=== PATIENT | female | born 1995 ===

== ENCOUNTER 2022-06-17 15:25 | Outpatient (CLI) | payer MEDICAID, SELFPAY ==
[2022-06-17 17:46] LABS: Chlamydia DNA Amplified* NOT DETECTED (No Detected); GC DNA Amplified* NOT DETECTED (No Detected)
== END 2022-06-17 15:26 | disposition home or self-care (01) ==
PROVIDERS: Visit Provider Physician Assistant
DX: Z01.419 Encounter for gynecological examination (general) (routine) without abnormal findings (principal); N89.8 Other specified noninflammatory disorders of vagina
CPT/HCPCS: 80061; 87491; 87591

== ENCOUNTER 2023-05-30 11:30 | Outpatient (CLI) | payer MEDICAID, SELFPAY | END 2023-05-30 11:31 | disposition home or self-care (01) | LOC: NFLDREF 06-06 10:54 | PROVIDERS: Visit Provider Physician Assistant | DX: R10.2 Pelvic and perineal pain (principal) | CPT/HCPCS: 87086 ==

== ENCOUNTER 2024-06-21 08:54 | Emergency (ER) | payer MEDICAID, SELFPAY ==
[2024-06-21] VITALS (17 sets, daily range): BP systolic 112–129; BP diastolic 78–88; PULSE 79–103; RESP 18; TEMP 36.9; O2SAT 98–100; BMI 26.6
--- NOTE | 2024-06-21 09:56 | CRLHL7_ITS ---
For Patients: As a result of the Century Cures Act, medical imaging exams and procedure reports are released immediately into your electronic medical record. You may view this report before your referring provider. If you have questions, please contact your health care provider. INDICATION: Chest pain TECHNIQUE: Chest 1 view COMPARISON: None FINDINGS: Cardiovascular and mediastinum: Heart size and vasculature are normal in caliber and appearance. Lungs and pleural spaces: Lungs are clear. No sign of infiltrate or mass. No sign of pleural effusion. No pneumothorax. Bones and soft tissues: No significant findings. IMPRESSION: No acute findings. Dictated by Jasvir Ellison MD @ 06/21/2024 10:14:24 AM (Electronically Signed)
--- NOTE | 2024-06-21 09:56 | ED.CHESTPAIN ---
HPI - Chest Pain General Time Seen by Provider: 09:56 Date Seen: 06/21/24 Chief Complaint: Chest Pain Stated Complaint: chest pain/pressure Time Seen by Provider: 06/21/24 09:55 Source: patient and RN notes reviewed Mode of arrival: ambulatory Limitations: no limitations History of Present Illness HPI narrative: Patient is a 28-year-old female with longstanding history of food allergies who comes to the emergency room for evaluation of chest pain. Patient notes the onset of chest pain on Friday night June 18 into Friday morning June 19. She notes that in past she used to have anaphylaxis to her food allergies but recently as an adult it seems to be more chest pain. She cannot recall any specific food she may have had that caused this. She notes that she has also had some increased congestion over the past 3 weeks and has been coughing. And has been a little bit harder to breathe. She denies a fever with this and has not experienced any belly pain or nausea. She does note that 1 month ago she did see her primary in [place] because she needed a yearly renewal of her asthma medications. She has not been in any recent long car rides plane rides and has not had a history of DVT. She adamantly denies any possibility of . She has not had any rashes or pruritus. Related Data Home Medications ?Medication ?Instructions ?Recorded ?Confirmed levonorgestrel (Mirena) 1 device intrauterine ONCE 06/17/22 06/21/24 albuterol sulfate 90 mcg/actuation 2 puff inhalation Q6H PRN 11/07/23 06/21/24 aerosol inhaler hydroxyzine HCl 25 mg tablet 25 mg PO QHS PRN 11/07/23 06/21/24 epinephrine 0.3 mg/0.3 mL 0.3 ml IM 06/21/24 injection, auto-injector fluticasone propionate 110 1 puff inhalation BID 06/21/24 06/21/24 mcg/actuation HFA aerosol inhaler levocetirizine 5 mg tablet 5 mg PO DAILY 06/21/24 06/21/24 Previous Rx's ?Medication ?Instructions ?Recorded azithromycin 250 mg tablet See Rx Instructions PO .COMPLEX #6 06/21/24 (Zithromax Z-Jeovanny) tabs prednisone 20 mg tablet 20 mg PO DAILY #4 tabs 12/09/24 Allergies Allergy/AdvReac Type Severity Reaction Status Date / Time soy Allergy Severe Anaphylaxis Verified 06/21/24 09:19 doxycycline Allergy Unknown Rash Verified 06/21/24 09:18 Sulfa (Sulfonamide Allergy Unknown Unknown Verified 06/21/24 09:18 Antibiotics) Review of Systems Status of ROS Reports: 10 or more systems reviewed and unremarkable except as noted in History and below Const Denies: fever, chills or fatigue Eyes Denies: change in vision ENMT Denies: throat pain, neck pain, throat swelling or nasal congestion Cardio Reports: chest pain and shortness of breath with exertion; Denies: palpitations, edema, swelling of feet/ankles or lightheadedness Resp Reports: shortness of breath and cough GI Denies: abdominal pain, nausea or vomiting Denies: painful urination Musculo Denies: back pain or neck pain Integ/Breast Denies: rash or itching Endo Denies: fatigue Allergy/Immuno Denies: throat swelling PFSH PFSH Medical History Anxiety ?F41.9 - Anxiety disorder, unspecified (ICD-10) Depression ?F32.A - Depression, unspecified (ICD-10) Surgical History History of colposcopy with cervical biopsy ?Z98.890 - Other specified postprocedural states (ICD-10) Family History Grandmother Stroke Diabetes Family/Other Alcohol dependence 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 No regular exercise. Non-smoker. 1-2 drinks/week. No recreational drug use. No concerns for safety or abuse. Smoking Status: Never smoker Do you use any of these nicotine containing products: None How often do you have a drink containing alcohol: monthly or less How often do you have six or more drinks on one occasion: Never AUDIT-C Alcohol total score: 1 Non-prescribed substance use: denies use service: No Exam Narrative Exam Narrative: Alert and oriented. No acute distress. Heart with tachycardic rate but regular. No murmur rub is noted. Patient noted to have no relief of her discomfort well leaning forward but did have increased discomfort with lying flat. Patient noted to have point tenderness with palpation over the right sided costal sternal rib articulations. No evidence of crepitus. Lungs are clear bilaterally without wheezing. Abdomen soft nontender. Lower extremities with no edema. Calves are tender in him negative Homans sign. Oral cavity with moist mucous membranes. Neck is supple without lymphadenopathy. Const Vital Signs, click to edit/add: Vital Signs - 24 hr 06/21/24 09:07 06/21/24 09:39 06/21/24 09:45 Temperature 98.4 F Pulse Rate 88 95 Pulse Rate [Pulse Oximeter] 80 Respiratory Rate 18 Blood Pressure Blood Pressure [Right Upper Arm] 129/88 Pulse Oximetry 98 99 99 Oxygen Delivery Method Room Air 06/21/24 10:00 06/21/24 10:15 06/21/24 10:30 Temperature Pulse Rate 91 84 82 Pulse Rate [Pulse Oximeter] Respiratory Rate Blood Pressure Blood Pressure [Right Upper Arm] Pulse Oximetry 100 100 100 Oxygen Delivery Method 06/21/24 10:45 06/21/24 11:00 06/21/24 11:15 Temperature Pulse Rate 92 79 82 Pulse Rate [Pulse Oximeter] Respiratory Rate Blood Pressure Blood Pressure [Right Upper Arm] Pulse Oximetry 100 98 100 Oxygen Delivery Method 06/21/24 11:30 06/21/24 11:45 06/21/24 12:00 Temperature Pulse Rate 84 90 82 Pulse Rate [Pulse Oximeter] Respiratory Rate Blood Pressure Blood Pressure [Right Upper Arm] Pulse Oximetry 99 100 99 Oxygen Delivery Method 06/21/24 12:11 06/21/24 12:15 06/21/24 12:20 Temperature Pulse Rate 79 83 Pulse Rate [Pulse Oximeter] Respiratory Rate 18 Blood Pressure 112/78 Blood Pressure [Right Upper Arm] Pulse Oximetry 99 99 Oxygen Delivery Method Documenting provider has reviewed patient's vital signs: yes Course Course ED Course: Differential diagnosis includes but is not limited to pericarditis, chest wall pain, pneumonia, URI, acute coronary event, pleurisy. Will place an IV and draw labs to include CBC, comprehensive panel, CRP, sed rate, troponin, magnesium, D-dimer. Will obtain EKG chest x-ray and place patient on store clerk at this time. Plan on trial of Toradol IV if initial troponin is negative. Reevaluation(s) Reevaluation #1: Patient informed that her troponin is negative and that her labs are reassuring although I am still waiting on a D-dimer. Will do a trial of Toradol. Reevaluation #2: Nursing staff informed me that the patient wanted to leave AMA. Stated to me that she had been waiting 4 hours for an allergic reaction with her chest pain and nothing has happened. She does note that she took Benadryl last night and it did not change how she was feeling I tried to talk to her about my belief that this was not an allergic reaction but likely secondary to her ongoing chest congestion over 3-4 weeks. While her chest x-ray is clear she continues to describe yellowish sputum especially in the morning and a cough. I did not auscultate any pertusses type of cough cough and she does have all of her immunizations with the exception of her COVID shots. She has tested negative for COVID influenza and RSV today. I did agree to give her Benadryl as she patient appears to be convinced that this is allergic reaction. She has no other rash or mucosal membrane swelling or edema. She did agree to give me an opportunity to go back and review all of her laboratory values. I did discuss labs with the patient including white count which is normal, hemoglobin normal, electrolyte panel shows slightly low potassium of 3.5 but otherwise discussed with patient is normal. Her CRP is normal and her initial troponin is negative. Her D-dimer comes back normal as well. I have suggested to patient that we treat with Zithromax for a bronchitis as well as prednisone 20 mg for 4 days and she is in agreement with this. At this time I have canceled her 2nd troponin. I would like the 2nd troponin but she was going to sign out AMA and she is fairly adamant that she wants to be going. With the fact that she has had ongoing pain for greater than 24 hours, 1 troponin should be sufficient to detect any abnormality. Vital Signs Vital signs: Initial Vital Signs Temperature 98.4 F 06/21/24 09:07 Temperature Source Temporal Artery Scan 06/21/24 09:07 Pulse Rate 80 06/21/24 09:07 Respiratory Rate 18 06/21/24 09:07 Blood Pressure 129/88 06/21/24 09:07 Blood Pressure Mean 101 06/21/24 09:07 Blood Pressure Position Sitting 12/09/24 09:07 Pulse Oximetry 98 06/21/24 09:07 Oxygen Delivery Method Room Air 06/21/24 09:07 Vital Signs Temperature 98.4 F 06/21/24 09:07 Pulse Rate 80 06/21/24 09:07 Respiratory Rate 18 06/21/24 09:07 Blood Pressure 129/88 06/21/24 09:07 Pulse Oximetry 98 06/21/24 09:07 Oxygen Delivery Method Room Air 06/21/24 09:07 Temperature 98.4 F 06/21/24 09:07 Pulse Rate 83 06/21/24 12:15 Respiratory Rate 18 06/21/24 12:20 Blood Pressure 112/78 06/21/24 12:11 Pulse Oximetry 99 06/21/24 12:15 Oxygen Delivery Method Room Air 06/21/24 09:07 Medications Administered Medications: Discontinued Medications Generic Name Dose Route Start Last Admin Trade Name Jody PRN Reason Stop Dose Admin Diphenhydramine HCl 50 mg 06/21/24 12:59 06/21/24 13:21 Diphenhydramine 25 Mg Capsule PO 06/21/24 13:00 50 mg ONCE ONE Administration Ketorolac Tromethamine 15 mg 06/21/24 11:41 06/21/24 12:02 Ketorolac 15 Mg/Ml Inj IVP 06/21/24 11:42 15 mg ONCE ONE Administration MDM - Chest Pain MDM Narrative Medical decision making narrative: 1. Bronchitis-patient has had ongoing chest congestion and a cough for approximately 4 weeks. Will treat with Zithromax 500 mg today followed by 250 mg daily for 4 days. Also prednisone 20 mg daily for 4 days. This was sent to her pharmacy [facility] in [place]. Recommend continuing current inhalers as directed. 2. Atypical chest pain-initial concerns regarding pericarditis is patient did seem to have more discomfort when lying flat. However EKG is reassuring, D-dimer and sed rate are normal. Reassurance that this does not appear to represent an acute coronary syndrome, PE or pneumonia. I did discuss with patient elevated heart rate she states that she is normally elevated. Her O2 saturations have been normal during her entire stay. She no lower extremity symptoms or risk factors for development of PE such as recent extended plate rides or past history of PE or DVT. 3. History of food allergies-Benadryl is given in the ED per patient request. No evidence to suggest anaphylaxis. 4. Disposition-well in initially patient was leaving AMA I was able to talk to patient and discuss laboratory findings, my concerns and she was receptive to suggestions. I have asked her to return for worsening symptoms and as needed. Medical Records Data Attestation: I reviewed the patient's medical records. Lab Data Attestation: I reviewed the patient's lab results. Labs: Lab Results 06/21/24 06/21/24 06/21/24 Range/Units 10:24 10:35 10:50 WBC 6.24 (4.50-11.00) K/uL RBC 4.70 (4.00-5.20) m/uL Hgb 13.4 (12.0-16.0) gm/dL Hct 40.0 (33.0-51.0) % MCV 85 (80-100) fL MCH 29 (26-34) pg MCHC 34 (32-36) gm/dL RDW Coeff of Katiuska 12.5 (11.5-15.5) % Plt Count 241 (140-440) K/uL Neut % (Auto) 56.4 (42.0-72.0) % Lymph % (Auto) 29.0 (20-44) % Mchenry % (Auto) 9.8 (0.0-11.0) % Eos % (Auto) 4.2 (0.0-7.0) % Baso % (Auto) 0.6 (0.0-3.0) % Neut # (Auto) 3.52 (1.7-7.0) K/uL Lymph # (Auto) 1.81 (0.90-2.90) K/uL Mchenry # (Auto) 0.60 (0.00-0.90) K/UL Eos # (Auto) 0.26 (0.00-0.50) K/uL Baso # (Auto) 0.04 (0.00-0.30) K/uL Abs Immat Gran (auto) 0.00 (0.00-0.30) K/uL Imm/Tot Granulo (auto) 0.0 % ESR 7 (2-20) mm/hr D-Dimer Quant (PE/DVT) 0.44 (0.00-0.50) ug/ml Sodium 138 (135-149) mmol/L Potassium 3.5 L (3.6-5.1) mmol/L Chloride 106 (96-114) mmol/L Carbon Dioxide 21 (20-32) mmol/L Anion Gap 11 (7-15) mEq/L BUN 12 (5-24) mg/dL Creatinine 0.7 (0.5-1.5) mg/dL Estimated Creat Clear 122.81 Estimated GFR 119 ml/min Glucose 112 (60-115) mg/dL Calcium 9.6 (8.4-10.6) mg/dL Magnesium 1.9 (1.5-2.6) mg/dL Total Bilirubin 0.5 (0.1-1.5) mg/dL AST 19 (12-35) U/L ALT 18 (4-35) U/L Alkaline Phosphatase 76 (40-150) U/L Troponin I < 0.01 L (0.01-0.04) ng/mL C-Reactive Protein < 0.5 L (0.5-1.0) mg/dL Total Protein 8.0 (6.0-8.3) g/dL Albumin 4.4 (3.3-5.0) g/dL SARS-CoV-2 (PCR) Negative SARS-CoV-2 (Negative) Influenza Type A (PCR) Negative PCR FLU A (Negative) Influenza Type B (PCR) Negative PCR FLU B (Negative) RSV (PCR) Negative PCR RSV (Negative) Lab Acknowledgement Test Added 06/21/24 Range/Units 11:50 WBC (4.50-11.00) K/uL RBC (4.00-5.20) m/uL Hgb (12.0-16.0) gm/dL Hct (33.0-51.0) % MCV (80-100) fL MCH (26-34) pg MCHC (32-36) gm/dL RDW Coeff of Katiuska (11.5-15.5) % Plt Count (140-440) K/uL Neut % (Auto) (42.0-72.0) % Lymph % (Auto) (20-44) % Mchenry % (Auto) (0.0-11.0) % Eos % (Auto) (0.0-7.0) % Baso % (Auto) (0.0-3.0) % Neut # (Auto) (1.7-7.0) K/uL Lymph # (Auto) (0.90-2.90) K/uL Mchenry # (Auto) (0.00-0.90) K/UL Eos # (Auto) (0.00-0.50) K/uL Baso # (Auto) (0.00-0.30) K/uL Abs Immat Gran (auto) (0.00-0.30) K/uL Imm/Tot Granulo (auto) % ESR (2-20) mm/hr D-Dimer Quant (PE/DVT) (0.00-0.50) ug/ml Sodium (135-149) mmol/L Potassium (3.6-5.1) mmol/L Chloride (96-114) mmol/L Carbon Dioxide (20-32) mmol/L Anion Gap (7-15) mEq/L BUN (5-24) mg/dL Creatinine (0.5-1.5) mg/dL Estimated Creat Clear Estimated GFR ml/min Glucose (60-115) mg/dL Calcium (8.4-10.6) mg/dL Magnesium (1.5-2.6) mg/dL Total Bilirubin (0.1-1.5) mg/dL AST (12-35) U/L ALT (4-35) U/L Alkaline Phosphatase (40-150) U/L Troponin I (0.01-0.04) ng/mL C-Reactive Protein (0.5-1.0) mg/dL Total Protein (6.0-8.3) g/dL Albumin (3.3-5.0) g/dL SARS-CoV-2 (PCR) (Negative) Influenza Type A (PCR) (Negative) Influenza Type B (PCR) (Negative) RSV (PCR) (Negative) Lab Acknowledgement Test Added Imaging Data Chest x-ray: Attestation: I have reviewed the pertinent imaging results. My impression: By my read no acute infiltrate Radiologist's impression: Cardiovascular and mediastinum: Heart size and vasculature are normal in caliber and appearance. Lungs and pleural spaces: Lungs are clear. No sign of infiltrate or mass. No sign of pleural effusion. No pneumothorax. Bones and soft tissues: No significant findings. IMPRESSION: No acute findings. ECG Data Attestation: I personally reviewed and interpreted this ECG as follows: ECG interpretation date: 06/21/24 Interpretation: EKG 1. By my review shows sinus tachycardia at a rate of 102. No acute ST or T-wave changes are noted. QT and VA intervals within normal limits. Discharge Plan Discharge Clinical Impression: Atypical chest pain, Bronchitis Patient Disposition: Home, Self-Care Additional Instructions: Start Zithromax for possible treatment of bronchitis. Consider probiotics during this time. Prednisone 20 mg daily for the next 4 days should help with inflammation. Return to the emergency room as needed for worsening symptoms. Prescriptions: New azithromycin [Zithromax Z-Jeovanny] 250 mg tablet See Rx Instructions .ROUTE .COMPLEX Qty: 6 0RF Rx Instructions: For 250 mg dose pack: take 500 mg today (day 1), then 250 mg for 4 days (days 2-5) prednisone 20 mg tablet 20 mg PO DAILY Qty: 4 0RF No Action hydroxyzine HCl 25 mg tablet 25 mg PO QHS PRN albuterol sulfate 90 mcg/actuation HFA aerosol inhaler 2 puff inhalation Q6H PRN Mirena 20 mcg/24 hours (8 yrs) 52 mg intrauterine device 1 device intrauterine ONCE Rx Instructions: as a single dose epinephrine 0.3 mg/0.3 mL auto-injector 0.3 ml IM fluticasone propionate 110 mcg/actuation HFA aerosol inhaler 1 puff INHALATION BID levocetirizine 5 mg tablet 5 mg PO DAILY Follow Up/Referrals: Provider,Not a Local [Non-Staff] - Stand Alone Forms: [facility] Info Instructions
[2024-06-21 10:33] LABS: Basophils Absolute Auto 0.04 K/uL (0.00-0.30); Basophils Percent Auto 0.6 % (0.0-3.0); Eosinophils Absolute Auto 0.26 K/uL (0.00-0.50); Eosinophils Percent Auto 4.2 % (0.0-7.0); Hemoglobin* 13.4 gm/dL (12.0-16.0); Lymphocytes Absolute Auto 1.81 K/uL (0.90-2.90); Mean Corpuscular HGB Conc 34 gm/dL (32-36); Mean Corpuscular Hemoglobin 29 pg (26-34); Mean Corpuscular Volume 85 fL (80-100); Monocytes Percent Auto 9.8 % (0.0-11.0); Neutrophils Absolute Auto 3.52 K/uL (1.7-7.0); Neutrophils Percent Auto 56.4 % (42.0-72.0); Platelet Count* 241 K/uL (140-440); RDW Coefficient of Variation % 12.5 % (11.5-15.5); White Blood Count* 6.24 K/uL (4.50-11.00)
[2024-06-21 10:36] LABS: Slide Review Reflex No
[2024-06-21 10:52] LABS: Albumin* 4.4 g/dL (3.3-5.0); Chloride* 106 mmol/L (96-114); Sodium* 138 mmol/L (135-149)
[2024-06-21 10:53] LABS: Potassium* 3.5 mmol/L (3.6-5.1)
[2024-06-21 10:55] LABS: Alanine Aminotransferase* 18 U/L (4-35); Alkaline Phosphatase* 76 U/L (40-150); Anion Gap 11 mEq/L (7-15); Aspartate Amino Transferase* 19 U/L (12-35); Bilirubin Total* 0.5 mg/dL (0.1-1.5); Carbon Dioxide* 21 mmol/L (20-32); Creatinine* 0.7 mg/dL (0.5-1.5); Est. Creatinine Clearance* 122.81; Estimated Glomerular Filt Rate 119 ml/min
[2024-06-21 10:56] LABS: Blood Urea Nitrogen* 12 mg/dL (5-24); Calcium* 9.6 mg/dL (8.4-10.6); Glucose* 112 mg/dL (60-115)
[2024-06-21 11:00] LABS: C Reactive Protein* < 0.5 mg/dL (0.5-1.0)
[2024-06-21 11:18] LABS: PCR FLU A Negative PCR FLU A (Negative); PCR FLU B Negative PCR FLU B (Negative); PCR RSV Negative PCR RSV (Negative); SARS PCR* Negative SARS-CoV-2 (Negative)
[2024-06-21 11:44] LABS: D Dimer Quantitative* 0.44 ug/ml (0.00-0.50)
[2024-06-21 11:45] LABS: Magnesium* 1.9 mg/dL (1.5-2.6)
[2024-06-21 11:54] LABS: Erythrocyte SedimentationRate* 7 mm/hr (2-20)
[2024-06-21] MEDS: KETOROLAC 15 MG/ML inj IVP (12:02)
[2024-06-21 12:18] LABS: Troponin I* < 0.01 ng/mL (0.01-0.04)
[2024-06-21] MEDS: diphenhydrAMINE 25 MG CAPSULE 50 MG PO (13:21)
== END 2024-06-21 13:28 | disposition home or self-care (01) ==
PROVIDERS: Emergency Provider Family Medicine; PCP Physician Assistant Medical
DX: R07.9 Chest pain, unspecified (principal); J40 Bronchitis, not specified as acute or chronic
CPT/HCPCS: 36415; 71045; 80053; 83735; 84484; 85025; 85379; 85651; 86140; 87631; 96374; 99284; A9270; J1885